=== PATIENT | female | born 1950 | race Caucasian/White ===

== ENCOUNTER 2021-02-11 02:51 | Emergency (ER) | payer MEDICARE, OTHER ==
[2021-02-11] MEDS ORDERED: Famotidine 20 MG/2 ML SDV IVPUSH ONE (03:11)
[2021-02-11] MEDS ORDERED: Morphine 4 MG/ML Syringe IVPUSH PRN (03:11)
[2021-02-11] MEDS ORDERED: Ondansetron 4 MG/2 ML SDV IVPUSH PRN (03:11)
[2021-02-11] MEDS ORDERED: Sodium Chloride 0.9% 1,000 ML IV SCH (03:15)
--- NOTE | 2021-02-11 03:22 | EDM.PDOC ---
ED HPI GENERAL MEDICAL PROBLEM - General Chief Complaint: Abdominal Pain Stated Complaint: LEFT SIDE PAIN Time Seen by Provider: 02/11/21 02:52 Source of Information: Reports: Patient, Family (spouse at bedside) History Limitations: Reports: No Limitations - History of Present Illness INITIAL COMMENTS - FREE TEXT/NARRATIVE: Presents emergency room today from home with spouse at bedside secondary to right lower quadrant pain. She states that pain started around 0 130 it woke her up she rates pain a 7 out of 10 constant in nature somewhat sharp. She is noted to be significantly restless in nature's due to pain she states that it is the right lower she will 0.2 and of the mid right side of her abdomen but then she also points to her right flank area when she starts pressing on her belly. Patient states that she is nauseous no vomiting no diarrhea but she has a sensation like she needs to vomit and have a stool. In fact patient is asking if she could go and sit on the toilet but is willing to wait at this point for us to do our evaluation. Prior abdominal surgeries include many years ago having a pelvic lift from her description as well as a tubal ligation. At this point she denies any other associated symptoms PMH--hypothyroidism, HTN, vit D def Meds--losartan, levothyroxen, vit D, low dose ASA, fish oil on occassion NKDA Tob/Drug--denies EtOH--about once monthly Patient denies having had COVID infection, she has had her COVID immunization (Moderna in August 2020 x 2 doses) Onset: Sudden Onset Date: 02/11/21 Onset Time: 01:30 Duration: Getting Worse Location: Reports: Abdomen Severity: Moderate (rates pain 7/10, restless in nature) Right Lower Abdomen Pain Score (Numeric/FACES): 7 - Related Data Allergies Allergy/AdvReac Type Severity Reaction Status Date / Time No Known Allergies Allergy Verified 02/11/21 03:02 Home Meds: Home Meds Aspirin [Halfprin] 81 mg PO DAILY 02/11/21 [History] Cholecalciferol (Vitamin D3) [Vitamin D] 5,000 unit PO DAILY 02/11/21 [History] Fish Oil/Rousseau-3 Fatty Acids [Fish Oil 1,000 MG] 1 each PO DAILY 02/11/21 [History] Levothyroxine Sodium [Levoxyl] 88 mcg PO DAILY 02/11/21 [History] Losartan [Cozaar] 100 mg PO DAILY 02/11/21 [History] Past Medical History 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: Musculoskeletal History: Reports: Arthritis Endocrine/Metabolic History: Reports: Hypothyroidism - Infectious Disease History Infectious Disease History: Reports: Chicken Pox, Measles, Mumps - Past Surgical History GI Surgical History: Reports: Colonoscopy Female Surgical History: Reports: Tubal Ligation, Other (See Below) Other Female Surgeries/Procedures: surgery to lift the uterus up Musculoskeletal Surgical History: Reports: Knee Replacement Other Musculoskeletal Surgeries/Procedures:: bilateral knee replacement Social & Family History - Tobacco Use Tobacco Use Status *Q: Never Tobacco User - Caffeine Use Caffeine Use: Reports: Coffee - Recreational Drug Use Recreational Drug Use: No ED ROS GENERAL - Review of Systems Review Of Systems: Comprehensive ROS is negative, except as noted in HPI. Constitutional: Reports: No Symptoms Respiratory: Reports: No Symptoms Cardiovascular: Reports: No Symptoms GI/Abdominal: Reports: Abdominal Pain, Nausea. Denies: Diarrhea, Vomiting : Reports: No Symptoms Neurological: Reports: No Symptoms ED EXAM, GI/ABD - Physical Exam Exam: See Below Exam Limited By: No Limitations General Appearance: Alert, Moderate Distress (secondary to abdominal pain), Obese, Other (diphoretic, pale) Eyes: Bilateral: Normal Appearance, EOMI Ears: Normal External Exam, Hearing Grossly Normal Nose: Normal Inspection Throat/Mouth: Normal Oropharynx, Normal Voice, No Airway Compromise Head: Atraumatic, Normocephalic Neck: Normal Inspection, Supple, Non-Tender, Full Range of Motion Respiratory/Chest: No Respiratory Distress, Lungs Clear, Normal Breath Sounds, No Accessory Muscle Use Cardiovascular: Normal Peripheral Pulses, Regular Rate, Rhythm, No Edema, No Murmur GI/Abdominal Exam: Tender (right sided abdominal tenderness mid-->lower quad/side as well as right flank), Abnormal Bowel Sounds (decreased all quadrants). No: Distended, Guarding, Rebound (Female) Exam: Deferred Rectal (Female) Exam: Deferred Back Exam: Normal Inspection Extremities: Normal Inspection, Normal Range of Motion, No Pedal Edema, Normal Capillary Refill Neurological: Alert, Oriented, Normal Cognition, No Motor/Sensory Deficits Psychiatric: Normal Affect, Normal Mood Skin Exam: Warm, Diaphoretic, Pallor #1 Interpretation EKG Date: 02/11/21 Time: 03:39 (read at 0339, no STEMI) Rhythm: NSR (sinus tachycardia) Rate (Beats/Min): 111 [place]: Normal (Left atrial enlargement) P-Wave: Present (NH-163) QRS: Normal (QRS-100) ST-T: Normal QT: Prolonged (QT/QTc-449/610) Course - Vital Signs Text/Narrative:: 0342--patient recheck after getting initial dose of morphine. she states pain is 8/10 but appears to be more comfortable as no longer writhing/restless as initial presentation. she states right sided pain has decreased but now having dull ache mid-abd just below umbilicus and across suprapubic/pelvis area into right groin, tenderness is more diffuse on exam lower abdomen with mild guarding. will change morphine to dilaudid, awaiting creat to order CT abd/pelvis 0400--morphine changed to diluadid due to continued pain that patient reported as increased (despite appearing calmer from arrival), PRODUCTION CORRUGATOR in room to administer and patient declined, stating she did not ask for any more pain medication 0405--patient now with very little abdominal pain, only states sore when palpating her mid to lower right abdomen & across pubic brim. no guarding or rebound. she rates pain for PRODUCTION CORRUGATOR 3/. she also is asking where she is at & why she is here, has no memory of acute abdominal pain--thinking she has been here sleeping. she is moving all extremities w/o difficulty, speech is intact/no slurring. change in mental status/confusion likely r/t morphine. BP 216/103. 0415--bilateral BP R-223/95-71 & L-228/96-71; denies any symptoms of concern other than noted mild confusion about why/what/time. does continue to state mild lower abdominal/pelvic brim discomfort and right sided abdominal discomfort described as dull ache. will give 10mg hydralazine for elevated blood pressure then have patient go to CT 0507--per PRODUCTION CORRUGATOR patient is clearing up from confusion earlier, starting to remember why she came into the ER. also starting to have more abdominal pain, still comfortable appearing. will hold off on pain meds at this time until mentation clears further then use fentanyl due to acute mental status change from morphine she experienced. CTA abd/pelvis has been completed, awaiting radiology reading at this time 0524--patient having nausea now with fentanyl. will give compazine as last dose of zofran at 0330 timeframe 0543--CTA abdomen and pelvis noted for impression of no acute vascular abnormality within the abdomen or pelvis. Mild right perinephric stranding hydronephrosis hydroureter secondary to 1 mm stone on the right UV junction no additional collecting system stone identified. Colonic diverticulosis. See report for full details. at this time will treat with toradol IVP, flomax po now and daily, anti-emetic, oral fluids and urology follow up. patient/spouse verbalized understanding of results/plan of care, ready for d/c Last Recorded V/S: Last Vital Signs Temp 96.2 F L 02/11/21 03:05 Pulse 71 02/11/21 04:16 Resp 24 H 02/11/21 03:36 BP 223/95 H 02/11/21 04:16 Pulse Ox 100 02/11/21 03:36 - Orders/Labs/Meds Orders: Active Orders 24 hr Category Date Time Status PATIENT RETYPE [BBK] Stat Lab 02/11/21 03:25 Results TYPE AND SCREEN [BBK] Stat Lab 02/11/21 03:25 Results Iopamidol [Isovue-370 (76%)] Med 02/11/21 04:15 Active 100 ml IV . DIRECTED Ondansetron [Zofran] Med 02/11/21 03:11 Active 4 mg IVPUSH Q6H PRN Sodium Chloride 0.9% [Normal Saline] 1,000 ml Med 02/11/21 03:15 Active IV ASDIRECTED Sodium Chloride 0.9% [Normal Saline] 75 ml Med 02/11/21 04:15 Active IV ASDIRECTED Sodium Chloride 0.9% [Saline Flush] Med 02/11/21 03:11 Active 10 ml FLUSH ASDIRECTED PRN Saline Lock Insert [OM.PC] Routine Oth 02/11/21 03:11 Ordered EKG 12 Lead [EK] Routine Ther 02/11/21 03:13 Ordered Medication Orders Sodium Chloride (Normal Saline) 1,000 mls @ 125 mls/hr IV ASDIRECTED BRANNON Last Admin: 02/11/21 03:31 Dose: 125 mls/hr Documented by: LOY Sodium Chloride (Normal Saline) 75 mls @ 3 mls/sec IV ASDIRECTED BRANNON Last Admin: 02/11/21 04:44 Dose: 3 mls/sec Documented by: RENETTA Iopamidol (Iopamidol 755 Mg/Ml 100 Ml Bottle) 100 ml IV . DIRECTED BRANNON Last Admin: 02/11/21 04:44 Dose: 100 ml Documented by: RENETTA Ondansetron HCl (Ondansetron 4 Mg/2 Ml Sdv) 4 mg IVPUSH Q6H PRN PRN Reason: Nausea/Vomiting Last Admin: 02/11/21 03:29 Dose: 4 mg Documented by: LOY Sodium Chloride (Sodium Chloride 0.9% 10 Ml Syringe) 10 ml FLUSH ASDIRECTED PRN PRN Reason: Keep Vein Open Last Admin: 02/11/21 04:44 Dose: 10 ml Documented by: Admin: 02/11/21 03:32 Dose: 10 ml Documented by: LOY Labs: Laboratory Tests 02/11/21 02/11/21 02/11/21 Range/Units 03:25 03:25 03:25 WBC 8.2 (4.5-11.0) K/uL RBC 4.32 (3.30-5.50) M/uL Hgb 13.0 (12.0-15.0) g/dL Hct 39.1 (36.0-48.0) % MCV 91 (80-98) fL MCH 30 (27-31) pg MCHC 33 (32-36) % Plt Count 412 H (150-400) K/uL Neut % (Auto) 51.0 (36-66) % Lymph % (Auto) 34.2 (24-44) % [place] % (Auto) 10.4 H (2-6) % Eos % (Auto) 3.8 (2-4) % Baso % (Auto) 0.6 (0-1) % PT (9.5-12.0) sec INR (0.80-1.20) APTT (27.0-36.0) sec Sodium 136 L (140-148) mmol/L Potassium 3.2 L (3.6-5.2) mmol/L Chloride 100 (100-108) mmol/L Carbon Dioxide 23 (21-32) mmol/L Anion Gap 16.2 H (5.0-14.0) mmol/L BUN 20 H (7-18) mg/dL Creatinine 0.8 (0.6-1.0) mg/dL Est Cr Clr Drug Dosing TNP Estimated GFR (MDRD) > 60 (>60) BUN/Creatinine Ratio Not Reportable Glucose 127 H (74-106) mg/dL Lactic Acid 3.8 H (0.4-2.0) mmol/L Calcium 9.1 (8.5-10.1) mg/dL Magnesium (1.8-2.4) mg/dL Total Bilirubin 0.4 (0.2-1.0) mg/dL AST 15 (15-37) U/L ALT 26 (12-78) U/L Alkaline Phosphatase 68 (46-116) U/L Troponin I (0.000-0.056) ng/mL C-Reactive Protein 0.13 (0.0-0.3) mg/dL Total Protein 7.3 (6.4-8.2) g/dL Albumin 3.9 (3.4-5.0) g/dL Globulin 3.4 (2.3-3.5) g/dL Albumin/Globulin Ratio 1.1 L (1.2-2.2) Amylase 40 (25-115) U/L Lipase 130 (73-393) U/L Urine Color (YELLOW) Urine Appearance (CLEAR) Urine pH (5.0-8.0) Ur Specific [place] (1.008-1.030) Urine Protein (NEGATIVE) mg/dL Urine Glucose (UA) (NEGATIVE) mg/dL Urine Ketones (NEGATIVE) mg/dL Urine Occult Blood (NEGATIVE) Urine Nitrite (NEGATIVE) Urine Bilirubin (NEGATIVE) Urine Urobilinogen (0.2-1.0) EU/dL Ur Leukocyte Esterase (NEGATIVE) Urine RBC (0-5) Urine WBC (0-5) Ur Epithelial Cells Amorphous Sediment Urine Bacteria Urine Mucus Blood Type Gel Antibody Screen 02/11/21 02/11/21 02/11/21 Range/Units 03:25 03:25 03:25 WBC (4.5-11.0) K/uL RBC (3.30-5.50) M/uL Hgb (12.0-15.0) g/dL Hct (36.0-48.0) % MCV (80-98) fL MCH (27-31) pg MCHC (32-36) % Plt Count (150-400) K/uL Neut % (Auto) (36-66) % Lymph % (Auto) (24-44) % [place] % (Auto) (2-6) % Eos % (Auto) (2-4) % Baso % (Auto) (0-1) % PT 10.1 (9.5-12.0) sec INR 0.93 (0.80-1.20) APTT 23.1 L (27.0-36.0) sec Sodium (140-148) mmol/L Potassium (3.6-5.2) mmol/L Chloride (100-108) mmol/L Carbon Dioxide (21-32) mmol/L Anion Gap (5.0-14.0) mmol/L BUN (7-18) mg/dL Creatinine (0.6-1.0) mg/dL Est Cr Clr Drug Dosing Estimated GFR (MDRD) (>60) BUN/Creatinine Ratio Glucose (74-106) mg/dL Lactic Acid (0.4-2.0) mmol/L Calcium (8.5-10.1) mg/dL Magnesium 2.0 (1.8-2.4) mg/dL Total Bilirubin (0.2-1.0) mg/dL AST (15-37) U/L ALT (12-78) U/L Alkaline Phosphatase (46-116) U/L Troponin I < 0.017 (0.000-0.056) ng/mL C-Reactive Protein (0.0-0.3) mg/dL Total Protein (6.4-8.2) g/dL Albumin (3.4-5.0) g/dL Globulin (2.3-3.5) g/dL Albumin/Globulin Ratio (1.2-2.2) Amylase (25-115) U/L Lipase (73-393) U/L Urine Color (YELLOW) Urine Appearance (CLEAR) Urine pH (5.0-8.0) Ur Specific [place] (1.008-1.030) Urine Protein (NEGATIVE) mg/dL Urine Glucose (UA) (NEGATIVE) mg/dL Urine Ketones (NEGATIVE) mg/dL Urine Occult Blood (NEGATIVE) Urine Nitrite (NEGATIVE) Urine Bilirubin (NEGATIVE) Urine Urobilinogen (0.2-1.0) EU/dL Ur Leukocyte Esterase (NEGATIVE) Urine RBC (0-5) Urine WBC (0-5) Ur Epithelial Cells Amorphous Sediment Urine Bacteria Urine Mucus Blood Type Gel Antibody Screen 02/11/21 02/11/21 Range/Units 03:25 03:59 WBC (4.5-11.0) K/uL RBC (3.30-5.50) M/uL Hgb (12.0-15.0) g/dL Hct (36.0-48.0) % MCV (80-98) fL MCH (27-31) pg MCHC (32-36) % Plt Count (150-400) K/uL Neut % (Auto) (36-66) % Lymph % (Auto) (24-44) % [place] % (Auto) (2-6) % Eos % (Auto) (2-4) % Baso % (Auto) (0-1) % PT (9.5-12.0) sec INR (0.80-1.20) APTT (27.0-36.0) sec Sodium (140-148) mmol/L Potassium (3.6-5.2) mmol/L Chloride (100-108) mmol/L Carbon Dioxide (21-32) mmol/L Anion Gap (5.0-14.0) mmol/L BUN (7-18) mg/dL Creatinine (0.6-1.0) mg/dL Est Cr Clr Drug Dosing Estimated GFR (MDRD) (>60) BUN/Creatinine Ratio Glucose (74-106) mg/dL Lactic Acid (0.4-2.0) mmol/L Calcium (8.5-10.1) mg/dL Magnesium (1.8-2.4) mg/dL Total Bilirubin (0.2-1.0) mg/dL AST (15-37) U/L ALT (12-78) U/L Alkaline Phosphatase (46-116) U/L Troponin I (0.000-0.056) ng/mL C-Reactive Protein (0.0-0.3) mg/dL Total Protein (6.4-8.2) g/dL Albumin (3.4-5.0) g/dL Globulin (2.3-3.5) g/dL Albumin/Globulin Ratio (1.2-2.2) Amylase (25-115) U/L Lipase (73-393) U/L Urine Color Yellow (YELLOW) Urine Appearance Clear (CLEAR) Urine pH 8.0 (5.0-8.0) Ur Specific [place] 1.025 (1.008-1.030) Urine Protein Negative (NEGATIVE) mg/dL Urine Glucose (UA) Negative (NEGATIVE) mg/dL Urine Ketones 15 H (NEGATIVE) mg/dL Urine Occult Blood Small H (NEGATIVE) Urine Nitrite Negative (NEGATIVE) Urine Bilirubin Negative (NEGATIVE) Urine Urobilinogen 0.2 (0.2-1.0) EU/dL Ur Leukocyte Esterase Small H (NEGATIVE) Urine RBC 0-5 (0-5) Urine WBC 5-10 H (0-5) Ur Epithelial Cells Few Amorphous Sediment Not seen Urine Bacteria Few Urine Mucus Not seen Blood Type A POSITIVE Gel Antibody Screen Negative 0348--creat 0.8, CT abd/pelvis with contrast ordered at this time 0357--neg trop, coag-normal, lactic acid-3.8/elevated but likely acute phase not lactic acidosis given hypertensive/afebrile/no resp distress. CBC noted for mild elevation platelets-412, CRP WNL, LFTs WNL. mild/borderline hyponatremia Na-136, mild hypokalemia K-3.2 Meds: Medications Generic Name Dose Route Start Last Admin Trade Name Freq PRN Reason Stop Dose Admin Sodium Chloride 1,000 mls @ 125 mls/hr 02/11/21 03:15 02/11/21 03:31 Normal Saline IV 125 mls/hr ASDIRECTED BRANNON Administration Sodium Chloride 75 mls @ 3 mls/sec 02/11/21 04:15 02/11/21 04:44 Normal Saline IV 3 mls/sec ASDIRECTED BRANNON Administration Iopamidol 100 ml 02/11/21 04:15 02/11/21 04:44 Iopamidol 755 Mg/Ml 100 Ml Bottle IV 100 ml . DIRECTED BRANNON Administration Ondansetron HCl 4 mg 02/11/21 03:11 02/11/21 03:29 Ondansetron 4 Mg/2 Ml Sdv IVPUSH 4 mg Q6H PRN Administration Nausea/Vomiting Sodium Chloride 10 ml 02/11/21 03:11 02/11/21 04:44 Sodium Chloride 0.9% 10 Ml Syringe FLUSH 10 ml ASDIRECTED PRN Administration Keep Vein Open Discontinued Medications Generic Name Dose Route Start Last Admin Trade Name Freq PRN Reason Stop Dose Admin Famotidine 20 mg 02/11/21 03:11 02/11/21 03:31 Famotidine 20 Mg/2 Ml Sdv IVPUSH 02/11/21 03:12 20 mg ONETIME ONE Administration Fentanyl 50 mcg 02/11/21 05:10 02/11/21 05:18 Fentanyl 100 Mcg/2 Ml Sdv IVPUSH 02/11/21 05:11 50 mcg ONETIME ONE Administration Hydralazine HCl 10 mg 02/11/21 04:18 02/11/21 04:23 Hydralazine 20 Mg/Ml Sdv IVPUSH 02/11/21 04:19 10 mg ONETIME ONE Administration Hydromorphone HCl 1 mg 02/11/21 03:46 Hydromorphone 1 Mg/Ml Syringe IVPUSH Q1H PRN Abdominal Pain Morphine Sulfate 4 mg 02/11/21 03:11 02/11/21 03:30 Morphine 4 Mg/Ml Syringe IVPUSH 4 mg Q2H PRN Administration Abdominal Pain Prochlorperazine Edisylate 5 mg 02/11/21 05:23 Prochlorperazine 10 Mg/2 Ml Sdv IVPUSH 02/11/21 05:24 ONETIME ONE Sodium Chloride 10 ml 02/11/21 04:11 02/11/21 04:23 Sodium Chloride 0.9% 10 Ml Syringe FLUSH 02/11/21 04:12 10 ml ONETIME ONE Administration Departure - Departure Time of Disposition: 05:45 Disposition: Home, Self-Care 01 Condition: Good Clinical Impression: Right ureteral stone, Hydronephrosis, right, Hydroureter, right - Discharge Information *PRESCRIPTION DRUG MONITORING PROGRAM REVIEWED*: Yes *COPY OF PRESCRIPTION DRUG MONITORING REPORT IN PATIENT SALVADOR: Yes Instructions: Hydronephrosis, Kidney Stones, Ipiw-or-Qxup, Dietary Guidelines to Help Prevent Kidney Stones Referrals: PCP,Unknown [Primary Care Provider] - Forms: ED Department Discharge Additional Instructions: Ensure that you are drinking plenty of fluidswater, juices, sports drinks of choice to stay well-hydrated and help flush out kidney stone that is noted at the entrance of the bladder. 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 Flomax helps relax the ureters which are the tubes from the kidney to the bladder assisting in pass age of a kidney stone. Been provided a prescription for pain medication to include ketorolac (Toradol) this is an anti-inflammatory do not use any [id number] ibuprofen (Motrin, Advil) or naproxen (Aleve) in the same 24 hours. You have also been provided a stronger pain medication of hydrocodone/acetaminophen ([place]) to use should you have pain that is uncontrolled by the ketorolac. Follow-up with your primary care provider in the next 3 to 5 days for further discussion and possible urology referral. Should you have worsening symptoms of concern return to the emergency room for further evaluation Sepsis Event Note (ED) - Focused Exam Vital Signs: Vital Signs Temp Pulse Resp BP BP Pulse Ox 02/11/21 04:16 71 223/95 H 02/11/21 03:56 216/103 H 02/11/21 03:36 75 24 H 213/110 H 100 02/11/21 03:05 96.2 F L 81 24 H 222/102 H 100 - My Orders Last 24 Hours: My Active Orders 02/11/21 03:11 Ondansetron [Zofran] 4 mg IVPUSH Q6H PRN Sodium Chloride 0.9% [Saline Flush] 10 ml FLUSH ASDIRECTED PRN Saline Lock Insert [OM.PC] Routine 02/11/21 03:13 EKG 12 Lead [EK] Routine 02/11/21 03:15 Sodium Chloride 0.9% [Normal Saline] 1,000 ml IV ASDIRECTED 02/11/21 03:25 PATIENT RETYPE [BBK] Stat TYPE AND SCREEN [BBK] Stat 02/11/21 04:15 Iopamidol [Isovue-370 (76%)] 100 ml IV . DIRECTED Sodium Chloride 0.9% [Normal Saline] 75 ml IV ASDIRECTED - Assessment/Plan Last 24 Hours: My Active Orders 02/11/21 03:11 Ondansetron [Zofran] 4 mg IVPUSH Q6H PRN Sodium Chloride 0.9% [Saline Flush] 10 ml FLUSH ASDIRECTED PRN Saline Lock Insert [OM.PC] Routine 02/11/21 03:13 EKG 12 Lead [EK] Routine 02/11/21 03:15 Sodium Chloride 0.9% [Normal Saline] 1,000 ml IV ASDIRECTED 02/11/21 03:25 PATIENT RETYPE [BBK] Stat TYPE AND SCREEN [BBK] Stat 02/11/21 04:15 Iopamidol [Isovue-370 (76%)] 100 ml IV . DIRECTED Sodium Chloride 0.9% [Normal Saline] 75 ml IV ASDIRECTED
[2021-02-11] MEDS: Sodium Chloride 0.9% 10 ML Syringe FLUSH PRN ×2 (03:32→04:44)
[2021-02-11] MEDS ORDERED: HYDROmorphone 1 MG/ML Syringe IVPUSH PRN (03:46)
[2021-02-11] MEDS ORDERED: Sodium Chloride 0.9% 10 ML Syringe FLUSH ONE (04:11)
[2021-02-11] MEDS ORDERED: Iopamidol 755 Mg/ML 100 ML Bottle IV SCH (04:15)
[2021-02-11] MEDS ORDERED: Sodium Chloride 0.9% 75 ML IV SCH (04:15)
[2021-02-11] MEDS ORDERED: hydrALAZINE 20 MG/ML SDV IVPUSH ONE (04:18)
[2021-02-11] MEDS ORDERED: fentaNYL 100 MCG/2 ML SDV IVPUSH ONE (05:10)
--- NOTE | 2021-02-11 05:14 | CRLCT ---
For Patients: As a result of the Century Cures Act, medical imaging exams and procedure reports are released immediately into your electronic medical record. You may view this report before your referring provider. If you have questions, please contact your health care provider. INDICATION: Acute onset right-sided pelvic pain TECHNIQUE: CTA abdomen and pelvis acquired with 100 cc Isovue 370 IV contrast. COMPARISON: None FINDINGS: Lower chest: Unremarkable. Liver: Unremarkable. Spleen: Unremarkable. Pancreas: Unremarkable. Gallbladder and bile ducts: Unremarkable. Adrenal glands: Unremarkable. Kidneys: Mild right perinephric fat stranding, hydronephrosis, and hydroureter secondary to a 1 mm stone at the right ureterovesical junction. No additional collecting system stone identified. GI tract: Colonic diverticulosis. Vascular structures: Mild atherosclerotic calcifications. The abdominal aorta, mesenteric, react, bilateral common femoral arteries and proximal portions of the bilateral femoral and deep femoral arteries are patent. Lymph nodes: Unremarkable. Miscellaneous: Unremarkable. No free air or significant free fluid. Pelvic Organs: Unremarkable. Bones: Mild dextroscoliosis of the lumbar spine, otherwise unremarkable for age. IMPRESSION: No acute vascular abnormality within the abdomen or pelvis. Mild right perinephric fat stranding, hydronephrosis, and hydroureter secondary to a 1 mm stone at the right ureterovesical junction. No additional collecting system stone identified. Colonic diverticulosis. Please note that all CT scans at this facility use dose modulation, iterative reconstruction, and/or weight-based dosing when appropriate to reduce radiation dose to as low as reasonably achievable. Dictated by Alissa Parr MD @ 02/11/2021 5:12:46 AM (Electronically Signed)
[2021-02-11] MEDS ORDERED: Prochlorperazine 10 MG/2 ML SDV IVPUSH ONE (05:23)
[2021-02-11] MEDS ORDERED: Tamsulosin 0.4 MG Cap.ER PO ONE (05:44)
[2021-02-11] MEDS ORDERED: Ketorolac 30 MG/ML SDV IVPUSH ONE (05:44)
== END 2021-02-11 06:19 | disposition home or self-care (01) ==
LOC: JP.ED 02:51
DX: N13.2 Hydronephrosis with renal and ureteral calculous obstruction (principal); E03.9 Hypothyroidism, unspecified; I10 Essential (primary) hypertension; Z79.899 Other long term (current) drug therapy; Z79.82 Long term (current) use of aspirin
CPT/HCPCS: 36415; 74174; 80053; 81001; 82150; 83605; 83690; 83735; 84484; 85025; 85610; 85730; 86140; 86850; 86900; 86901; 87086; 93005; 96374; 96375; 99284; A9270; J0360; J1885; J2270; J2405; J3010; J3490; J7030; Q9967